=== PATIENT | female | born 1935 | race African-American/Black ===

== ENCOUNTER 2020-09-07 16:32 | Emergency (ER) | payer MEDICARE, BC ==
[~2020-09-07 16:32] MED LIST: Atropine Sulfate 1 mg/10 ml Syringe ONE; Calcium Chloride 1 GM/10 ML Abboject SYRINGE ONE; EPINEPHrine 1 MG/10 ML Abboject SYRINGE ONE; Lidocaine 2 gm/D5W 500ML PREMIX BAG ONE; Sodium Bicarb 50 MEQ/50 ML Abboject 8.4% SYRINGE ONE
[2020-09-07 17:05] LABS: Base Excess-Venous -10.6 mmol/L (-2.0 to 3.0); Bicarbonate (HCO3v) 17.5 mmol/L (22.0-28.0); Calcium, Ionized 1.06 mmol/L (1.15-1.33); Chloride 107 mmol/L (98-107); Glucose 193 mg/dL (83-110); Hemoglobin - Calc 13.3 g/dL (12.0-16.0); Lactate 8.19 mmol/L (0.50-2.20); Potassium 4.7 mmol/L (3.5-5.1); Sodium 140 mmol/L (138-145); T. Carbon Dioxide 18.9 mmol/L (22.0-28.0); vO2 Saturation-calc 66.6 % (60.0-85.0)
== END 2020-09-07 17:09 | disposition expired ==
LOC: ERS 16:32
DX: I46.9 Cardiac arrest, cause unspecified (principal); E11.9 Type 2 diabetes mellitus without complications; I10 Essential (primary) hypertension
CPT/HCPCS: 31500; 36416; 36680; 82330; 82435; 82565; 82803; 82947; 83605; 84132; 84295; 85014; 92950; 96374; 96375; J0171; J0461; J2001